=== PATIENT | male | born 1980 | race Hispanic/Latino ===

== ENCOUNTER 2018-07-15 02:22 | Emergency (ER) | payer SELFPAY ==
[2018-07-15 02:32] VITALS: BP 145/90; PULSE 103; RESP 16; TEMP 98.6; O2SAT 97
--- NOTE | 2018-07-15 02:48 | ED PDOC ---
HPI: Psych/Substance Abuse Time Seen by Provider: 07/15/18 02:31 Chief Complaint (Nursing): Alcohol Ingestion Chief Complaint (Provider): Alcohol Ingestion ED Caveat: Intoxicated History Per: EMS History/Exam Limitations: intoxication Onset/Duration Of Symptoms: Hrs Current Symptoms Are (Timing): Still Present Modifying Factor(s): Alcohol Additional Complaint(s): 38 y/o male brought in by EMS for public intoxication. History is limited due to intoxicated state. PMD: none provided Past Medical History Reviewed: Historical Data, Nursing Documentation, Vital Signs Vital Signs: Last Vital Signs Temp 98.6 F 07/15/18 02:29 Pulse 103 H 07/15/18 02:29 Resp 16 07/15/18 02:29 BP 145/90 07/15/18 02:29 Pulse Ox 97 07/15/18 02:29 - Medical History PMH: No Chronic Diseases - Surgical History Surgical History: No Surg Hx - Family History Family History: States: Unknown Family Hx - Social History Alcohol: > 2 Drinks/Day - Allergies Allergies/Adverse Reactions: Allergies Allergy/AdvReac Type Severity Reaction Status Date / Time shellfish derived Allergy ANGIOEDEMA Verified 07/15/18 02:29 Review of Systems Review Of Systems: ROS cannot be obtained secondary to pt's inabilty to answer questions. Physical Exam - Reviewed Nursing Documentation Reviewed: Yes Vital Signs Reviewed: Yes - Physical Exam Appears: Positive for: No Acute Distress Head Exam: Positive for: ATRAUMATIC, NORMOCEPHALIC Skin: Positive for: Normal Color, Warm, Dry Eye Exam: Positive for: Normal appearance Neck: Positive for: Normal, Painless ROM Cardiovascular/Chest: Positive for: Regular Rate, Rhythm. Negative for: Murmur Respiratory: Positive for: Normal Breath Sounds. Negative for: Respiratory Distress Gastrointestinal/Abdominal: Positive for: Normal Exam, Soft. Negative for: Tenderness Back: Positive for: Normal Inspection. Negative for: L CVA Tenderness, R CVA Tenderness, Vertebral Tenderness Extremity: Positive for: Normal ROM. Negative for: Deformity Neurologic/Psych: Positive for: Gait (unsteady), Other (slurred speech) - ECG O2 Sat by Pulse Oximetry: 97 (RA) Pulse Ox Interpretation: Normal Medical Decision Making Medical Decision Making: Time: 241 Impression: 38 y/o male presenting with public intoxication. Plan: -- Alcohol Serum -- Glucose, POC -- Accucheck Time: 545 -- On re-evaluation, patient is clinically sober in the ED. Patient is alert, oriented (x3) and walking with a steady gait. Patient is stable for discharge. Scribe Attestation: Documented by Stef Lizama, acting as a scribe for Johnny Olmedo MD. Provider Scribe Attestation: All medical record entries made by the Scribe were at my direction and personally dictated by me. I have reviewed the chart and agree that the record accurately reflects my personal performance of the history, physical exam, medical decision making, and the department course for this patient. I have also personally directed, reviewed, and agree with the discharge instructions and disposition. Disposition - Clinical Impression Clinical Impression: Alcohol intoxication - Patient ED Disposition Is Patient to be Admitted: No Counseled Patient/Family Regarding: Studies Performed - Disposition Disposition: Routine/Home Disposition Time: 05:46 Condition: STABLE Instructions: Alcohol Use - When Is Drinking a Problem? Forms: [facility] (French)
== END 2018-07-15 06:08 | disposition home or self-care (01) ==
LOC: H.ER 02:22
DX: F10.129 Alcohol abuse with intoxication, unspecified (principal)
CPT/HCPCS: 82948; 99283; G0480